=== PATIENT | female | born 1995 | race Caucasian/White ===

== ENCOUNTER 2022-12-10 09:42 | Outpatient (CLI) | payer OTHER, SELFPAY ==
--- NOTE | ~2022-12-10 | CT_ITS ---
EXAMINATION: CT abdomen wo con DATE: 12/10/2022 09:56 INDICATION: Incisional hernia without obstruction or gangrene, history of laparoscopic cholecystectom y in 2019 and surgical repair of incarcerated umbilical hernia nine months ago TECHNIQUE: Computed tomography (CT) of the abdomen was performed without intravenous contrast. The do se-length product (DLP) was 155.41 mGy-cm. Automated exposure control and iterative reconstruction te chnique were employed. COMPARISON: None FINDINGS: The lung bases are clear. The heart size is normal. Bilateral breast implants are noted. Th ere are changes of cholecystectomy. The liver, spleen, pancreas, and adrenal glands are normal. The k idneys are unremarkable. There are changes of mesh ventral hernia repair. No recurrent incisional her marcelino is identified. There are no pathologically enlarged abdominal lymph nodes. No free intraperitonea l gas or evidence of bowel obstruction. IMPRESSION: 1. No recurrent incisional hernia identified. Reviewed, dictated and finalized at location F.
== END 2022-12-10 09:43 ==
PROVIDERS: PCP Family Medicine; Visit Provider Surgery
DX: K43.0 Incisional hernia with obstruction, without gangrene (principal)
CPT/HCPCS: 74150